=== PATIENT | female | born 1955 | race Caucasian/White ===

== ENCOUNTER 2018-08-05 14:25 | Emergency (ER) | payer BC ==
[2018-08-05 14:51] VITALS: BP 146/81
[2018-08-05 15:09] LABS: CHLORIDE,CL 106 mEq/L (98-106); SODIUM,NA 142 mEq/L (136-145)
--- NOTE | 2018-08-05 15:15 | EDM.PDOC ---
ED HPI GENERAL MEDICAL PROBLEM - General Chief Complaint: General Stated Complaint: abd pain Time Seen by Provider: 08/05/18 14:54 Source of Information: Reports: Patient History Limitations: Reports: No Limitations - History of Present Illness INITIAL COMMENTS - FREE TEXT/NARRATIVE: This patient is a 63 year old female that presents to the ER. Patient reports that at 3am this morning she began having this right side, anterior, chest pain near the abdomen. Patient reports it feels like a sharp needle there and comes and goes. Patient denies injury. Patient reports she did have nausea earlier today. Patient denies loyd, dizziness, v, d, f, soa, urinary/bowel changes. The patient reports it hurts worse to take a big deep breath or to push on the rib area. patient is alert and oriented. She is conversing in full and complete sentences. Patient vitals are Stable. Onset: Today Onset Date: 08/05/18 Onset Time: 03:00 Location: Reports: Chest Front/Back Body Image: 1 - pain/tender. Quality: Reports: Sharp ("needle") Severity: Mild Improves with: Reports: None Worsens with: Reports: None Associated Symptoms: Reports: Nausea/Vomiting. Denies: Confusion, Chest Pain, Cough, cough w sputum, Diaphoresis, Fever/Chills, Headaches, Loss of Appetite, Malaise, Rash, Seizure, Shortness of Breath, Syncope, Weakness Right Lower Chest Pain Score (Numeric/FACES): 5 - Related Data Allergies Allergy/AdvReac Type Severity Reaction Status Date / Time Penicillins Allergy Cannot Verified 08/05/18 14:26 Remember tape Allergy Rash Uncoded 08/05/18 14:26 Home Meds: Home Meds Calcium Carbonate/Vitamin D3 [Calcium 600 + Vit D3 Tablet] 1 tab PO DAILY [History] Cholecalciferol (Vitamin D3) [Vitamin D] 1,000 unit PO DAILY 09/27/13 [History] Estradiol 2 mg PO DAILY 09/27/13 [History] Levothyroxine [Synthroid] 88 mcg PO DAILY 09/27/13 [History] Metoprolol Succinate [Toprol XL] 25 mg PO DAILY 09/27/13 [History] Magnesium 750 mg PO DAILY 02/13/15 [History] ALPRAZolam [Xanax] 0.25 mg PO DAILY 08/05/18 [History] Past Medical History Cardiovascular History: Reports: Hypertension - Past Surgical History Female Surgical History: Reports: Hysterectomy Musculoskeletal Surgical History: Reports: Other (See Below) Other Musculoskeletal Surgeries/Procedures:: ankle surgery Social & Family History - Family History Family Medical History: Noncontributory - Tobacco Use Smoking Status *Q: Never Smoker Second Hand Smoke Exposure: No ED ROS GENERAL - Review of Systems Review Of Systems: See Below Constitutional: Reports: No Symptoms HEENT: Reports: No Symptoms Respiratory: Reports: Pleuritic Chest Pain. Denies: Shortness of Breath, Wheezing, Cough, Sputum, Hemoptysis Cardiovascular: Reports: Chest Pain. Denies: Blood Pressure Problem, Dyspnea on Exertion, Edema, Lightheadedness, Orthopnea, Palpitations, Syncope Endocrine: Reports: No Symptoms GI/Abdominal: Reports: Nausea. Denies: Abdominal Pain, Constipation, Diarrhea, Decreased Appetite, Difficulty Swallowing, Distension, Flatus, Hematemesis, Vomiting : Reports: No Symptoms Musculoskeletal: Reports: No Symptoms Skin: Reports: No Symptoms Neurological: Reports: No Symptoms Psychiatric: Reports: No Symptoms Hematologic/Lymphatic: Reports: No Symptoms Immunologic: Reports: No Symptoms ED EXAM, GENERAL - Physical Exam Exam: See Below Exam Limited By: No Limitations General Appearance: Alert, WD/WN, No Apparent Distress, Anxious Eye Exam: Bilateral Eye: Normal Inspection, PERRL Ears: Normal External Exam, Normal Canal, Hearing Grossly Normal, Normal TMs Ear Exam: Bilateral Ear: Auricle Normal, Canal Normal, TM normal Nose: Normal Inspection, Normal Mucosa, No Blood Throat/Mouth: Normal Inspection, Normal Lips, Normal Teeth, Normal Gums, Normal Oropharynx, Normal Voice, No Airway Compromise Head: Atraumatic, Normocephalic Neck: Normal Inspection, Supple, Non-Tender, Full Range of Motion Respiratory/Chest: No Respiratory Distress, Lungs Clear, Normal Breath Sounds, No Accessory Muscle Use, Other (Mild tenderness over the 10th anterior rib. No pain under the rib or in abd. exam. No flail chest, no splinting. ). No: Decreased Breath Sounds, Crackles, Rales, Rhonchi, Wheezing, Stridor, Pleural Rub, Accessory Muscle Use, Retractions, Splinting, Prolonged Expiration Cardiovascular: Normal Peripheral Pulses, Regular Rate, Rhythm, No Edema, No Gallop, No JVD, No Murmur, No Rub Peripheral Pulses: 2+: Radial (L), Radial (R), Posterior Tibial (L), Posterior Tibial (R), Dorsalis Pedis (L), Dorsalis Pedis (R) GI/Abdominal: Normal Bowel Sounds, Soft, Non-Tender, No Organomegaly, No Distention, No Abnormal Bruit, No Mass, Pelvis Stable. No: Distended, Guarding , Rigid, Rebound, Tender, Abnormal Bowel Sounds, Hernia, Mass, Hepatomegaly, Splenomegaly Back Exam: Normal Inspection, Full Range of Motion. No: CVA Tenderness (L), CVA Tenderness (R), Decreased Range of Motion, Muscle Spasm, Paraspinal Tenderness, Vertebral Tenderness Extremities: Normal Inspection, Normal Range of Motion, Non-Tender, No Pedal Edema, Normal Capillary Refill Neurological: Alert, Oriented, Normal Cognition, Normal Gait, No Motor/Sensory Deficits Psychiatric: Anxious Skin Exam: Warm, Dry, Intact, Normal Color, No Rash Lymphatic: No Adenopathy EKG INTERPRETATION EKG Date: 08/05/18 Time: 14:52 Rhythm: NSR Rate (Beats/Min): 72 [place]: Normal P-Wave: Present QRS: Normal ST-T: Normal QT: Normal Comparison: NA - No Prior EKG Course - Vital Signs Last Recorded V/S: Last Vital Signs Temp 97.2 F 08/05/18 14:37 Pulse 73 08/05/18 14:37 Resp 18 08/05/18 14:37 BP 146/81 H 08/05/18 14:37 Pulse Ox 98 08/05/18 14:37 - Orders/Labs/Meds Orders: Active Orders 24 hr Category Date Time Status Chest 2V [CR] Stat Exams 08/05/18 14:35 Taken Labs: Laboratory Tests 08/05/18 08/05/18 Range/Units 14:45 14:45 WBC 10.1 H (5.0-10.0) 10^3/uL RBC 4.47 (4.00-5.50) 10^6/uL Hgb 13.9 (12.0-16.0) g/dL Hct 42.1 (37.0-47.0) % MCV 94.2 H (82.0-94.0) fL MCH 31.1 (27.0-32.0) pg MCHC 33.0 (33.0-38.0) g/dL RDW Coeff of Priscila 12.5 (11.0-15.0) % Plt Count 258 (150-400) 10^3/uL Neut % (Auto) 56.4 (35-85) % Lymph % (Auto) 35.0 (10-55) % [place] % (Auto) 6.5 (0-16) % Eos % (Auto) 1.4 (0-5) % Baso % (Auto) 0.7 (0-3) % Neut # (Auto) 5.71 (1.80-7.00) 10^3/uL Lymph # (Auto) 3.54 (1.00-4.80) 10^3/uL [place] # (Auto) 0.66 (0.00-0.80) 10^3/uL Eos # (Auto) 0.14 (0.00-0.45) 10^3/uL Baso # (Auto) 0.07 10^3/uL Sodium 142 (136-145) mEq/L Potassium 3.5 (3.5-5.0) mEq/L Chloride 106 (98-106) mEq/L Carbon Dioxide 29 (21-32) mmol/L BUN 19 H (7-18) mg/dL Creatinine 1.1 H (0.6-1.0) mg/dL Est Cr Clr Drug Dosing 49.64 mL/min Estimated GFR (MDRD) 50 L (>=60) mL/min Glucose 108 H (75-99) mg/dL Calcium 9.1 (8.4-10.1) mg/dL Total Bilirubin 0.6 (0.0-1.0) mg/dL AST 20 (15-37) U/L ALT 28 (12-78) U/L Alkaline Phosphatase 126 H (46-116) U/L Creatine Kinase 44 (21-215) U/L Troponin I < 0.017 (0.00-0.06) ng/mL NT-Pro-B Natriuret Pep 227 (0-1000) pg/mL Total Protein 7.3 (6.4-8.2) g/dL Albumin 3.5 (3.4-5.0) g/dL Amylase 57 (25-115) U/L - Radiology Interpretation Free Text/Narrative:: CXR: No infiltrates, no pulmonary edema, no no cardiomegaly, no rib fxs. Departure - Departure Time of Disposition: 15:39 Disposition: Home, Self-Care 01 Condition: Good Clinical Impression: Chest pain Qualifiers: Chest pain type: unspecified Qualified Code(s): R07.9 - Chest pain, unspecified - Discharge Information *PRESCRIPTION DRUG MONITORING PROGRAM REVIEWED*: No *COPY OF PRESCRIPTION DRUG MONITORING REPORT IN PATIENT MARC: No Instructions: Nonspecific Chest Pain Referrals: Shelton Hickman MD [Primary Care Provider] - Forms: ED Department Discharge Additional Instructions: Followup with your primary care provider Return to the ER for worsening of condition or any emergent concerns such as increase in pain, fever, vomiting. Increase fluids - My Orders Last 24 Hours: My Active Orders 08/05/18 14:35 Chest 2V [CR] Stat - Assessment/Plan Last 24 Hours: My Active Orders 08/05/18 14:35 Chest 2V [CR] Stat Plan: PLEASE SEE RN NOTE FOR PFSH.
== END 2018-08-05 16:00 | disposition home or self-care (01) ==
LOC: CC.ED 14:25
DX: R07.9 Chest pain, unspecified (principal); I10 Essential (primary) hypertension; Z88.0 Allergy status to penicillin; Z91.048 Other nonmedicinal substance allergy status; Z79.899 Other long term (current) drug therapy
CPT/HCPCS: 36415; 71046; 80053; 82150; 82550; 83880; 84484; 85025; 93005; 99284

== ENCOUNTER 2025-04-04 19:08 | Emergency (ER) | payer MEDICARE, BC ==
[2025-04-04 19:28] VITALS: BP 166/91; PULSE 107
[2025-04-04] MEDS: Lidocaine 1% with EPINEPHrine 1:100,000 10 ML MDV INJECT ONE (19:38)
[2025-04-04] MEDS ORDERED: Bacitracin/Neomycin/Polymyxin B Oint 28.4 GM Tube TOP ONE (19:47)
[2025-04-04] MEDS: Bacitracin Oint 1 GM U/D Packet TOP ONE (20:01)
== END 2025-04-04 20:00 | disposition home or self-care (01) ==
LOC: CC.ED 19:08
DX: S81.812A Laceration without foreign body, left lower leg, initial encounter (principal); I10 Essential (primary) hypertension; Z90.710 Acquired absence of both cervix and uterus; Z88.0 Allergy status to penicillin; Z91.048 Other nonmedicinal substance allergy status; Z79.890 Hormone replacement therapy; Z79.899 Other long term (current) drug therapy; W25.XXXA Contact with sharp glass, initial encounter
CPT/HCPCS: 12001; 99282; 99283